=== PATIENT | female | born 1970 | race Caucasian/White ===

== ENCOUNTER 2017-09-02 20:42 | Observation (INO) | payer OTHER ==
[2017-09-02] MEDS ORDERED: ASPIRIN 325 MG TABLET PO ONE (20:49)
--- NOTE | 2017-09-02 20:56 | PDOC ---
Rapid Medical Evaluation Time Seen by Provider: 09/02/17 20:49 Medical Evaluation: Allergies Allergy/AdvReac Type Severity Reaction Status Date / Time No Known Allergies Allergy Verified 10/12/15 22:22 09/02/17 20:50 Pt with PMH of CHF, hx of coarctation repair, mitral valve insufficiency, presents to the ED for L sided chest discomfort, light headedness, and L arm numbness today. Pt states she has had discomfort for the past 5 days, however, today pt states that her chest became extremely tight and light headed. Pt states that she almost passed out. Pt states she can't catch her breath. Was evaluated at urgent care and was told to come to the ED Exam: RRR, diastolic murmur over the 2-3rd L sternal boarder II/. CTAB. AAOx3 Orders: Chest pain order set Pt to proceed to ED for further evaluation Tongue And Quarter Stitcher: Dr. Cuevas Discharge Disposition - Diagnosis Chest pain - Referrals - Patient Instructions - Post Discharge Activity
[2017-09-02 20:58] VITALS: BMI 42.0
[2017-09-02] MEDS ORDERED: ASPIRIN 325 MG TABLET ONE (21:03)
--- NOTE | 2017-09-02 21:20 | PDOC ---
History of Present Illness - General Chief Complaint: Chest Pain Stated Complaint: CHEST PAIN Time Seen by Provider: 09/02/17 20:49 - History of Present Illness Initial Comments: 09/02/17 21:19 Ms. Marinelli is a 47 yo female w/ pmh of coarctation of the aorta (repaired 1981), MV insufficiency, bicuspid aortic valve, obesity, and sleep apnea who presents for evaluation of 5 day history of AM chest discomfort increased today. She reports that every morning upon awakening from sleep she has had left sided chest pain that would resolved after a few hours. She presents as she had an episode today where her chest became very tight and she reports she became lightheaded and almost lost consciousness. She then went to urgent care and was instructed to present to ED. She is also currently slightly nauseated. The patient denies fever, chills, vomit, diarrhea and constipation. Denies dysuria, frequency, urgency and hematuria. Allergies: DA Heel Former: Dr. Cuevas Past History - Past Medical History Allergies/Adverse Reactions: Allergies Allergy/AdvReac Type Severity Reaction Status Date / Time No Known Allergies Allergy Verified 09/02/17 22:32 Home Medications: Ambulatory Orders Acetaminophen [Tylenol .Regular Strength -] 650 mg PO Q4H PRN #0 tablet Albuterol 2.5/Ipratropium 0.5 [Duoneb -] 1 neb IH QID #90 vial.neb. 10/21/15 Albuterol Sulfate Inhaler - [Ventolin HFA Inhaler -] 1 - 2 inh PO Q4H PRN #1 inhaler 10/21/15 Carvedilol [Coreg -] 3.125 mg PO BID #60 tablet 10/21/15 Cyclobenzaprine HCl [Flexeril -] 10 mg PO TID PRN #20 tablet 10/21/15 Furosemide [Lasix -] 40 mg PO DAILY #30 tablet 10/21/15 Nebulizer [Compact Compressor Nebulizer] 1 each ASDIR #1 kit 10/21/15 Ramipril [Altace] 2.5 mg PO DAILY #30 capsule 10/21/15 Cardiac Disorders: Yes (MV insuf, coartation of aorta) COPD: No CHF: Yes HTN: Yes (pulm HTN) - Surgical History Cardiac Surgery: Yes (coartation repair) Cholecystectomy: Yes Orthopedic Surgery: Yes (foot sx) - Immunization History Immunization Up to Date: Yes - Suicide/Smoking/Psychosocial Hx Smoking History: Former smoker Have you smoked in the past 12 months: No Number of Cigarettes Smoked Daily: 20 If you are a former smoker, when did you quit?: 2006 Information on smoking cessation initiated: No Hx Alcohol Use: No Drug/Substance Use Hx: No Substance Use Type: None Hx Substance Use Treatment: No Review of Systems - Review of Systems Comments:: 09/02/17 21:32 GENERAL/CONSTITUTIONAL: No fever or chills. No weakness. HEAD, EYES, EARS, NOSE AND THROAT: No change in vision. No ear pain or discharge. No sore throat. CARDIOVASCULAR: +Chest pain as described RESPIRATORY: No cough, wheezing, or hemoptysis. GASTROINTESTINAL: +Current minor nausea. No vomiting, diarrhea or constipation. GENITOURINARY: No dysuria, frequency, or change in urination. MUSCULOSKELETAL: No joint or muscle swelling or pain. No neck or back pain. SKIN: No rash NEUROLOGIC: +Light headed feeling as described. No headache, vertigo, loss of consciousness, or change in strength/sensation. ENDOCRINE: No increased thirst. No abnormal weight change HEMATOLOGIC/LYMPHATIC: No anemia, easy bleeding, or history of blood clots. ALLERGIC/IMMUNOLOGIC: No hives or skin allergy. *Physical Exam - Vital Signs Last Vital Signs Temp Pulse Resp BP Pulse Ox 98.3 F 99 H 18 144/91 100 09/02/17 20:49 09/02/17 20:49 09/02/17 20:49 09/02/17 20:49 09/02/17 20:49 - Physical Exam Comments: 09/02/17 21:33 GENERAL: Awake, alert, and fully oriented, in no acute distress HEAD: No signs of trauma, normocephalic, atraumatic EYES: PERRLA, EOMI, sclera anicteric, conjunctiva clear ENT: Auricles normal inspection, hearing grossly normal, nares patent, oropharynx clear without exudates. Moist mucosa NECK: Normal ROM, supple, no lymphadenopathy, JVD, or masses LUNGS: No distress, speaks full sentences, clear to auscultation bilaterally HEART: Regular rate and rhythm, normal S1 and S2, no murmurs, rubs or gallops, peripheral pulses normal and equal bilaterally. ABDOMEN: Soft, nontender, normoactive bowel sounds. No guarding, no rebound. No masses EXTREMITIES: Normal inspection, Normal range of motion, no edema. No clubbing or cyanosis. NEUROLOGICAL: Cranial nerves II through XII grossly intact. Normal speech, normal gait, no focal sensorimotor deficits SKIN: Warm, Dry, normal turgor, no rashes or lesions noted. ED Treatment Course - LABORATORY CBC & Chemistry Diagram: 09/02/17 22:25 09/02/17 22:25 - Medications Given in the ED: ED Medications Discontinued Medications Generic Name Dose Route Start Last Admin Trade Name Freq PRN Reason Stop Dose Admin Aspirin 325 mg 09/02/17 20:49 09/02/17 21:03 Asa - PO 09/02/17 20:50 325 mg ONCE ONE Administration Medical Decision Making - Medical Decision Making 09/03/17 01:42 Ms. Marinelli is a 47 yo female w/ pmh as described who presents for evaluation of 5 day history of chest pain. Patient currently resting comfortably, evaluation sent for cardiac workup grossly negative. EKG non-concerning, CXR negative. D- Dimer elevated as below. Patient currently pending CTA chest/abdomen for further evaluation - r/o PE/ dissection. Patient signed out to Dr. Hood for further evaluation. Laboratory Results - last 24 hr 09/02/17 09/02/17 09/02/17 22:25 22:25 22:25 WBC 8.7 RBC 4.33 Hgb 13.4 Hct 39.4 MCV 90.8 MCH 30.8 MCHC 33.9 RDW 12.9 Plt Count 246 D MPV 7.9 Absolute Neuts (auto) 5.7 Neutrophils % 65.3 Lymphocytes % 26.5 Monocytes % 6.6 Eosinophils % 0.4 D Basophils % 1.2 Nucleated RBC % 0 PT with INR 11.10 INR 0.98 D-Dimer Sodium 139 Potassium 3.8 Chloride 100 Carbon Dioxide 29 Anion Gap 10 BUN 9 Creatinine 0.8 Creat Clearance w eGFR > 60 Random Glucose 103 Calcium 9.2 Magnesium 2.0 Total Bilirubin 0.4 AST 17 ALT 29 Alkaline Phosphatase 59 Creatine Kinase 47 Troponin I < 0.02 Total Protein 7.0 Albumin 3.7 Serum , Qual 09/02/17 09/03/17 22:25 01:27 WBC RBC Hgb Hct MCV MCH MCHC RDW Plt Count MPV Absolute Neuts (auto) Neutrophils % Lymphocytes % Monocytes % Eosinophils % Basophils % Nucleated RBC % PT with INR INR D-Dimer 675 H Sodium Potassium Chloride Carbon Dioxide Anion Gap BUN Creatinine Creat Clearance w eGFR Random Glucose Calcium Magnesium Total Bilirubin AST ALT Alkaline Phosphatase Creatine Kinase Troponin I Total Protein Albumin Serum , Qual Negative *DC/Admit/Observation/Transfer Diagnosis at time of Disposition: Chest pain Qualifiers: Chest pain type: unspecified Qualified Code(s): R07.9 - Chest pain, unspecified - Discharge Dispostion Decision to Admit order: Yes - Referrals Referrals: Tati Hooks MD [Primary Care Provider] - - Patient Instructions - Post Discharge Activity
[2017-09-02 22:52] LABS: BASO % 1.2 % (0-2.0); EOS % 0.4 % (0-4.5); HEMATOCRIT 39.4 % (32.4-45.2); HEMOGLOBIN 13.4 GM/dL (10.7-15.3); LYMPH % 26.5 % (8-40); MCH 30.8 pg (25.7-33.7); MCHC 33.9 g/dl (32.0-36.0); MEAN CELL VOLUME 90.8 fl (80-96); MEAN PLT VOLUME 7.9 fl (7.5-11.1); MONO % 6.6 % (3.8-10.2); NEUT % 65.3 % (42.8-82.8); PLATELET COUNT 246 K/MM3 (134-434); RBC 4.33 M/mm3 (3.60-5.2); RDW 12.9 % (11.6-15.6); WHITE BLOOD COUNT 8.7 K/mm3 (4.0-10.0)
[2017-09-02] MEDS ORDERED: CARVEDILOL 3.125 MG TABLET (FP) PO ONE (22:53)
[2017-09-02] MEDS ORDERED: morphine CARPU-JECT 4 MG/1 ML DISP.SYRIN IVPUSH ONE (22:53)
[2017-09-02 23:04] LABS: INR 0.98 (0.82-1.09); PROTHROMBIN TIME (PATIENT) 11.1 SEC (9.7-13.0)
[2017-09-02] MEDS ORDERED: morphine SULFATE 4 MG/ML VIAL ONE (23:05)
[2017-09-02] MEDS ORDERED: CARVEDILOL 3.125 MG TABLET (FP) ONE (23:05)
[2017-09-02 23:23] LABS: ALBUMIN 3.7 g/dl (3.4-5.0); ANION GAP 10 (8-16); BLOOD UREA NITROGEN 9 mg/dL (7-18); CALCIUM 9.2 mg/dL (8.5-10.1); CHLORIDE 100 mmol/L (98-107); CO2 29 mmol/L (21-32); CREATININE 0.8 mg/dL (0.55-1.02); GLUCOSE,RANDOM 103 mg/dL (74-106); POTASSIUM 3.8 mmol/L (3.5-5.1); SGOT/AST 17 U/L (15-37); SGPT/ALT 29 U/L (12-78); SODIUM 139 mmol/L (136-145)
[2017-09-02 23:26] LABS: ALK PHOS 59 U/L (45-117); BILIRUBIN,TOTAL 0.4 mg/dL (0.2-1.0)
--- NOTE | 2017-09-03 01:22 | PDOC ---
Attending Attestation - HPI HPI: 09/03/17 01:23 Ms. Marinelli is a 47-year-old female with past medical history of aortic coarctation repair (1981), pneumonia 2012, CHF, mitral valve insufficiency, bicuspid aortic valve, CPRS and BINH, HTN presents to the emergency department via EMS with chest pain. The patient presents with pain, initially presented on Tuesday, presented below the L. breast, states its more felt in the morning accompanied with difficulty deep breathing. The patient reports additional concern of progressively worsening, constant, substernal L. sided chest pain, pressure/discomfort in character, states she felt a quick swoosh from the heart that traveled up to the head followed by the feeling of blacking out, accompanied with L. arm tingling, denies pain radiating down the arm. The patient reports following up at the urgent care [employer], where an EKG was done. The patient states healthcare providers were concerned and wanted her to follow up at the ED. The patient reports getting a cardiac echo done in May, with nonsignificant results. The patient states shes been minimal ambulation since November 2016, s/p an unsuccessful foot surgery and a knee injury. Denies fever. Denies SOB or respiratory distress. No cough or congestion. Denies similar incident in the past. (+) L. arm tingling. Nausea. Substernal L. sided chest pain. Below L. breast pain in the morning. Allergies: NKDA Social history: Former smoker. No alcohol or recreational drug use reported Surgical history: Cholecystectomy, tonsillectomy, repair of coarctation of aorta at age [age], Foot surgery for fx sesamoid 2014 Family history: Grandmother: ID around age 70. PCP: Dr. Tati Hooks. Management Retail Intern: Dr. Cuevas - Physicial Exam PE: 09/03/17 01:23 General: Well appearing, awake and alert, NAD. HEENT: NCAT, PERRL, EOMI, clear conjunctiva, anicteric, moist mucus membranes, clear oropharynx, no oral lesions.. Neck: neck supple, FROM Resp: CTAB, normal and even respirations, no respiratory distress CVS: (+) Soft holosystolic murmur, regular rate. 2+ peripheral pulses throughout , no peripheral edema Abdomen: soft, NTND, no peritoneal signs. Back: nontender, normal inspection and ROM MSK: no edema, HOLLIDAY x4, ROM intact. No clubbing or cyanosis. normal bulk and tone. Neuro: alert, oriented appropriately; no focal neurologic deficits. SILT, 5/5 distal and prox strength in all extrem. speech clear. Skin: warm and well perfused, cap refill <2 sec, normal color; no rash <Brooke Dennis - Last Filed: 09/03/17 01:23> - Resident Resident Name: Brent Tinsley - ED Attending Attestation I have performed the following: I have examined & evaluated the patient, The case was reviewed & discussed with the resident, I agree w/resident's findings & plan, Exceptions are as noted - Medical Decision Making 09/03/17 01:19 A portion of this note was documented by scribe services under my direction. I have reviewed the details of the note, within reason, and agree with the documentation with the following case summary and management plan written by me. MDM Yves 47 YOF - h/o aortic coarctation repair (1981), pneumonia 2012, CHF, mitral valve insufficiency, bicuspid aortic valve, CPRS and BINH, HTN Presenting with chest pain x 5 days, worse today. +left pleuritic chest pain, anterior substernal chest pain today a/w near syncope and feeling flushed. No prior history of similar sx. DDx chest pain: ACS, PE, dissection, PUD, esophageal spasm, GERD, gastritis, costochondritis, pneumonia, pleurisy, pericarditis/myocarditis. dehydration, electrolyte/metabolic derangements. ECG: sinus rhythm at 95 bpm normal intervals, TWI and flattening in III/AVF, similar to prior results. Otherwise no segment or interval derangements. trop negative x1, Heart score 1 but with additional cardio vascular risk factors warranting cards eval Plan: CXR, CBC, CMP, EKG, trop. D dimer, ASA 324mg x1, morphine for pain control Cannot PERC out, due to tachycardia and cardiovascular risk factors, D dimer elevated and age adjusted elevated. CTA to r/o aortic dissection and PE. Will admit for medical management, r/o ACS, tele and serial trops and cards cs. Called out to her laser specialist group, Dr. Cuevas. 09/03/17 01:21 09/03/17 01:22 09/03/17 02:00 <Taylor Harvey - Last Filed: 09/03/17 02:00> Heart Score/ECG Review - History History: Slightly suspicious - Electrocardiogram EKG: Normal - Age Age: </= 45 - Risk Factors Risk Factors Heart Score: Yes Hx Hypertension, Yes Hx Obesity Based on the list above the patient has:: 1-2 risk factors - Troponin Troponin: </= normal limit - Score Heart Score - Total: 1 - ECG Impressions Comment:: 09/03/17 01:59 sinus rhythm at 95 bpm normal intervals, TWI and flattening in III/AVF, similar to prior results <Taylor Harvey - Last Filed: 09/03/17 02:00>
[2017-09-03] MEDS ORDERED: ONDANSETRON 4 MG/2 ML VIAL IVPB ONE (03:41)
[2017-09-03] MEDS ORDERED: ONDANSETRON 4 MG/2 ML VIAL ONE (03:52)
--- NOTE | 2017-09-03 04:33 | PDOC ---
*Physical Exam - Vital Signs Last Vital Signs Temp Pulse Resp BP Pulse Ox 98.3 F 84 17 121/65 98 09/02/17 20:49 09/03/17 03:58 09/03/17 03:58 09/03/17 03:58 09/03/17 03:58 ED Treatment Course - LABORATORY CBC & Chemistry Diagram: 09/02/17 22:25 09/02/17 22:25 - ADDITIONAL ORDERS Additional order review: Laboratory Results 09/03/17 09/02/17 09/02/17 01:27 22:25 22:25 PT with INR INR D-Dimer 675 H Sodium 139 Potassium 3.8 Chloride 100 Carbon Dioxide 29 Anion Gap 10 BUN 9 Creatinine 0.8 Creat Clearance w eGFR > 60 Random Glucose 103 Calcium 9.2 Magnesium 2.0 Total Bilirubin 0.4 AST 17 ALT 29 Alkaline Phosphatase 59 Creatine Kinase 47 Troponin I < 0.02 Total Protein 7.0 Albumin 3.7 Serum , Qual Negative 09/02/17 22:25 PT with INR 11.10 INR 0.98 D-Dimer Sodium Potassium Chloride Carbon Dioxide Anion Gap BUN Creatinine Creat Clearance w eGFR Random Glucose Calcium Magnesium Total Bilirubin AST ALT Alkaline Phosphatase Creatine Kinase Troponin I Total Protein Albumin Serum , Qual 09/02/17 22:25 RBC 4.33 MCV 90.8 MCHC 33.9 RDW 12.9 MPV 7.9 Neutrophils % 65.3 Lymphocytes % 26.5 Monocytes % 6.6 Eosinophils % 0.4 D Basophils % 1.2 - Medications Given in the ED: ED Medications Discontinued Medications Generic Name Dose Route Start Last Admin Trade Name Davidq PRN Reason Stop Dose Admin Aspirin 325 mg 09/02/17 20:49 09/02/17 21:03 Asa - PO 09/02/17 20:50 325 mg ONCE ONE Administration Carvedilol 3.125 mg 09/02/17 22:53 09/02/17 23:00 Coreg - PO 09/02/17 22:54 3.125 mg ONCE ONE Administration Morphine Sulfate 4 mg 09/02/17 22:53 09/02/17 23:00 Morphine Injection - IVPUSH 09/02/17 22:54 4 mg ONCE ONE Administration Ondansetron HCl 4 mg 09/03/17 03:41 09/03/17 03:50 Zofran Injection IVPB 09/03/17 03:42 4 mg ONCE ONE Administration Medical Decision Making - Medical Decision Making 09/03/17 04:[address] Harvey and Dr. Tinsley CTA of chest reviewed. No PE. Will admit patient for DANNIELLE. Case discussed with [place] hospitalist. *DC/Admit/Observation/Transfer Diagnosis at time of Disposition: Chest pain Qualifiers: Chest pain type: unspecified Qualified Code(s): R07.9 - Chest pain, unspecified - Discharge Dispostion Condition at time of disposition: Stable Decision to Admit order: Yes - Referrals Referrals: Tati Hooks MD [Primary Care Provider] - - Patient Instructions - Post Discharge Activity
--- NOTE | 2017-09-03 05:10 | HP ---
CHIEF COMPLAINT: Chest pain PCP: Cardio: Dr. Cuevas HISTORY OF PRESENT ILLNESS: 47 y/o F presents with worsening Left sided chest tightness x5 days. Pain is located below her left breast, mid clavicle and described as an 8/10 stabbing pain that does not travel. Today this pain was accompanied by nausea, lightheadness, Left arm numbness and difficulty breathing. Since tuesday, the patient has woken with this pain and it has resolved within a few hours. Today however, the pain has changed; It is now located midsternal and feels like a heaviness that has not resolved. Patient feels she cannot catch her breath. She was evaluated at an urgent care and was instructed to visit the ED for a possible infarct. ER course was notable for: (1) CXR negative, Troponin X1 negative, D-Dimer 675 (2) CTA Chest: Possible left upper lobe small airway disease. No other acute pathology in chest or abdomen. (3) EKG: NSR, possible LA Enlargment, Vent rate 95, QTc 437 Recent Travel: PAST MEDICAL HISTORY: CHF, Coarctation repair at age 11, Mitral valve insufficiency, Bicuspid aortic valve, Obesity, Sleep apnea on Bipap, Adenomyosis PAST SURGICAL HISTORY: GB, Tonsils, Foot, Coarctation repair Social History: Smoking: former 1/2ppd smoker quit in 2006 Alcohol: denies Drugs: denies Family History: Grandmother had an DE age 70 Allergies No Known Allergies Allergy (Verified 09/02/17 22:32) HOME MEDICATIONS: Home Medications Medication Instructions Recorded Acetaminophen [Tylenol .Regular 650 mg PO Q4H PRN #0 tablet 10/21/15 Strength -] Albuterol 2.5/Ipratropium 0.5 1 neb IH QID #90 vial.neb. 10/21/15 [Duoneb -] Albuterol Sulfate Inhaler - 1 - 2 inh PO Q4H PRN #1 inhaler 10/21/15 [Ventolin HFA Inhaler -] Carvedilol [Coreg -] 3.125 mg PO BID #60 tablet 10/21/15 Cyclobenzaprine HCl [Flexeril -] 10 mg PO TID PRN #20 tablet 10/21/15 Furosemide [Lasix -] 40 mg PO DAILY #30 tablet 10/21/15 Nebulizer [Compact Compressor 1 each MC ASDIR #1 kit 10/21/15 Nebulizer] Ramipril [Altace] 2.5 mg PO DAILY #30 capsule 10/21/15 REVIEW OF SYSTEMS CONSTITUTIONAL: Absent: fever, chills, diaphoresis, generalized weakness, malaise, loss of appetite, weight change HEENT: Absent: rhinorrhea, nasal congestion, throat pain, throat swelling, difficulty swallowing, mouth swelling, ear pain, eye pain, visual changes CARDIOVASCULAR: Present: chest pain, lightheadedness Absent: syncope, palpitations, irregular heart rate, peripheral edema RESPIRATORY: Present: shortness of breath Absent: cough, dyspnea with exertion, orthopnea, wheezing, stridor, hemoptysis GASTROINTESTINAL: Present: nausea Absent: abdominal pain, abdominal distension, vomiting, diarrhea, constipation, melena, hematochezia GENITOURINARY: Absent: dysuria, frequency, urgency, hesitancy, hematuria, flank pain, genital pain MUSCULOSKELETAL: Absent: myalgia, arthralgia, joint swelling, back pain, neck pain SKIN: Absent: rash, itching, pallor HEMATOLOGIC/IMMUNOLOGIC: Absent: easy bleeding, easy bruising, lymphadenopathy, frequent infections ENDOCRINE: Absent: unexplained weight gain, unexplained weight loss, heat intolerance, cold intolerance NEUROLOGIC: Absent: headache, focal weakness or paresthesias, dizziness, unsteady gait, seizure, mental status changes, bladder or bowel incontinence PSYCHIATRIC: Absent: anxiety, depression, suicidal or homicidal ideation, hallucinations. PHYSICAL EXAMINATION Vital Signs - 24 hr 09/02/17 09/03/17 20:49 03:58 Temperature 98.3 F Pulse Rate 99 H Pulse Rate [ 84 Right Radial] Respiratory 18 17 Rate Blood Pressure 144/91 Blood Pressure 121/65 [Left Arm] O2 Sat by Pulse 100 98 Oximetry (%) GENERAL: Awake, alert, and fully oriented, in no acute distress. LUNGS: Breath sounds equal, clear to auscultation bilaterally. No wheezes, and no crackles. HEART: Regular rate and rhythm, normal S1 and S2, Systolic murmur at Left sternal border ABDOMEN: Obese, Soft, nontender, not distended, normoactive bowel sounds, no guarding, no rebound, no masses. UPPER EXTREMITIES: 2+ pulses, warm, well-perfused. LOWER EXTREMITIES: 2+ pulses, warm, well-perfused. No peripheral edema. Laboratory Results - last 24 hr 09/02/17 09/02/17 09/02/17 22:25 22:25 22:25 WBC 8.7 RBC 4.33 Hgb 13.4 Hct 39.4 MCV 90.8 MCH 30.8 MCHC 33.9 RDW 12.9 Plt Count 246 D MPV 7.9 Absolute Neuts (auto) 5.7 Neutrophils % 65.3 Lymphocytes % 26.5 Monocytes % 6.6 Eosinophils % 0.4 D Basophils % 1.2 Nucleated RBC % 0 PT with INR 11.10 INR 0.98 D-Dimer Sodium 139 Potassium 3.8 Chloride 100 Carbon Dioxide 29 Anion Gap 10 BUN 9 Creatinine 0.8 Creat Clearance w eGFR > 60 Random Glucose 103 Calcium 9.2 Magnesium 2.0 Total Bilirubin 0.4 AST 17 ALT 29 Alkaline Phosphatase 59 Creatine Kinase 47 Troponin I < 0.02 Total Protein 7.0 Albumin 3.7 Serum , Qual 09/02/17 09/03/17 22:25 01:27 WBC RBC Hgb Hct MCV MCH MCHC RDW Plt Count MPV Absolute Neuts (auto) Neutrophils % Lymphocytes % Monocytes % Eosinophils % Basophils % Nucleated RBC % PT with INR INR D-Dimer 675 H Sodium Potassium Chloride Carbon Dioxide Anion Gap BUN Creatinine Creat Clearance w eGFR Random Glucose Calcium Magnesium Total Bilirubin AST ALT Alkaline Phosphatase Creatine Kinase Troponin I Total Protein Albumin Serum , Qual Negative ASSESSMENT/PLAN: 47 y/o F presents with atypical chest pain, feels like heaviness accompanied with difficulty breathing 1. R/O ACS - EKG: NSR, repeat - Troponins < 0.02 X1, Trend - D-Dimer: 675 - CTA: No acute pathology, No evidence of PE - In ED, Given 1 dose Morphine, D/c'ed - Zofran for Nausea - Admit to Obs - Cardiology (Dr. Luevano) Consulted, will follow recommendations - Can continue home meds once reconciled with pharmacy 2. PPx - DVT: Early ambulation Visit type - Emergency Visit Emergency Visit: Yes ED Registration Date: 09/03/17 Care time: The patient presented to the Emergency Department on the above date and was hospitalized for further evaluation of their emergent condition. - New Patient This patient is new to me today: Yes Date on this admission: 09/03/17 - Critical Care Critical Care patient: No Hospitalist Screening - Colonoscopy Questionnaire Colonoscopy Questionnaire: Colonoscopy Questionnaire - Patient: 50 - 75 years old and never had a screening colonoscopy: Unknown History of colon or rectal polyps, or CA: Unknown History of IBD, Crohn's disease or UC: Unknown History of abdominal radiation therapy as a child: Unknown - Relative: 1 with colon or rectal CA, or polyps at age 60 or younger: Unknown Colon or rectal CA diagnosed at age 45 or younger: Unknown Multiple relatives with colon or rectal CA: Unknown - Outcome: Screening Result: Negative Screen
--- NOTE | 2017-09-03 06:12 | PN ---
Teaching Attending Note Name of Resident: Venu Burdick ATTENDING PHYSICIAN STATEMENT I saw and evaluated the patient. I reviewed the resident's note and discussed the case with the resident. I agree with the resident's findings and plan as documented. SUBJECTIVE: OBJECTIVE: ASSESSMENT AND PLAN: this is a 47 y/o female with hx of Bicuspid AV, coractation of aorta, admitted to the hospital for atypical chest pain patient pain is worse with breathing and moving the arm she contacted dr ulloa but they told her to come to the ER will consult cardiology admit to atypical chest pain
[2017-09-03 08:35] LABS: BASO % 0.5 % (0-2.0); EOS % 0.6 % (0-4.5); HEMATOCRIT 36.9 % (32.4-45.2); HEMOGLOBIN 12.7 GM/dL (10.7-15.3); LYMPH % 28.2 % (8-40); MCH 31.3 pg (25.7-33.7); MCHC 34.5 g/dl (32.0-36.0); MEAN CELL VOLUME 90.8 fl (80-96); MEAN PLT VOLUME 7.4 fl (7.5-11.1); MONO % 8.6 % (3.8-10.2); NEUT % 62.1 % (42.8-82.8); PLATELET COUNT 216 K/MM3 (134-434); RBC 4.06 M/mm3 (3.60-5.2); RDW 13.1 % (11.6-15.6); WHITE BLOOD COUNT 7.4 K/mm3 (4.0-10.0)
[2017-09-03 09:02] LABS: ANION GAP 8 (8-16); BLOOD UREA NITROGEN 11 mg/dL (7-18); CALCIUM 9.1 mg/dL (8.5-10.1); CHLORIDE 101 mmol/L (98-107); CO2 29 mmol/L (21-32); CREATININE 0.8 mg/dL (0.55-1.02); GLUCOSE,RANDOM 107 mg/dL (74-106); MAGNESIUM 2.2 mg/dL (1.8-2.4); PHOSPHOROUS 4.1 mg/dL (2.5-4.9); POTASSIUM 3.7 mmol/L (3.5-5.1); SODIUM 138 mmol/L (136-145)
--- NOTE | 2017-09-03 09:09 | CON.CARD ---
Consult Consult Specialty:: Cardiology Referred by:: Hospitalist Medicine Reason for Consultation:: Chest pain - History of Present Illness Chief Complaint: Chest pain History of Present Illness: Patient is a 47 year old female w PMH of coarctation of aorta repair (1981), diastolic failure with mitral valve prolapse with moderate insufficiency, pulm HTN, bicuspid aortic valve with mild-mod and OSAS on cpap, inflammed L. foot secondary to breakage of the sessamoid bone, last seen in office June 04, 2017 presents for atypical left sided reproducible chest tightness x5 days. Pain is located below her left breast, mid clavicle and described as an 8/10 stabbing pain that does not radiate, worse with palpation, reports anxiety and light- headedness, denies dyspnea, near or true syncope, palpitations, orthopnea, PND or LE edema. ER course was notable for: (1) CXR negative, Troponin X1 negative, D-Dimer 675 (2) CTA Chest: Possible left upper lobe small airway disease. No other acute pathology in chest or abdomen. (3) EKG: NSR, possible LA Enlargment, Vent rate 95, QTc 437 - History Source History Provided By: Patient Limitations to Obtaining History: No Limitations - Past Medical History Cardio/Vascular: Yes: CHF, Pulmonary Hypertension, Other (coarctation of aorta/ bicuspid aortic valve). No: AFIB Pulmonary: Yes: Pneumonia (in past 2012). No: Asthma, COPD, O2 Dependent ...LMP: 04/07/17 ...LMP Comment: Adenomyosis ...: No - Past Surgical History Past Surgical History: Yes: Cholecystectomy, Tonsillectomy - Alcohol/Substance Use Hx Alcohol Use: No History of Substance Use: reports: None - Smoking History Smoking history: Former smoker Have you smoked in the past 12 months: No Aproximately how many cigarettes per day: 20 If you are a former smoker, when did you quit?: 2006 - Social History History of Recent Travel: No Home Medications - Allergies Allergies/Adverse Reactions: Allergies Allergy/AdvReac Type Severity Reaction Status Date / Time No Known Allergies Allergy Verified 09/03/17 06:07 - Home Medications Home Medications: Ambulatory Orders Carvedilol [Coreg -] 3.125 mg PO BID #60 tablet 10/21/15 Furosemide [Lasix -] 40 mg PO DAILY #30 tablet 10/21/15 Ramipril [Altace] 2.5 mg PO DAILY #30 capsule 10/21/15 Review of Systems - Review of Systems Cardiovascular: reports: Chest Pain Vital Signs: Vital Signs Temperature 98.0 F 09/03/17 09:05 Pulse Rate 84 09/03/17 09:05 Respiratory Rate 18 09/03/17 09:05 Blood Pressure 112/70 09/03/17 09:05 O2 Sat by Pulse Oximetry (%) 100 09/03/17 09:00 Constitutional: Yes: No Distress, Calm Neck: Yes: Supple Respiratory: Yes: Regular, CTA Bilaterally, Other (Reproducible left chest wall tenderness) Gastrointestinal: Yes: Normal Bowel Sounds, Soft, Abdomen, Obese Cardiovascular: Yes: Regular Rate and Rhythm JVD: No Carotid Bruit: No Heart Sounds: Yes: S1, S2 Murmur: Yes: Systolic Murmur, Grade 1 Edema: No - Other Data Labs, Other Data: CBC, BMP 09/03/17 08:25 09/03/17 08:25 INR, PTT INR 0.98 (0.82-1.09) 09/02/17 22:25 Troponin, BNP 09/02/17 22:25 Troponin I < 0.02 Troponin, BNP 09/02/17 22:25 Troponin I < 0.02 NSR @ 95 LAE Ejection Fraction %: LVEF > or = 40 % Imaging - Results Chest X-ray: Report Reviewed (NAD) Cat Scan: Pending Problem List - Problems (1) Atypical chest pain Code(s): R07.89 - OTHER CHEST PAIN (2) Bicuspid aortic valve Code(s): Q23.1 - CONGENITAL INSUFFICIENCY OF AORTIC VALVE (3) Coarctation of aorta Code(s): Q25.1 - COARCTATION OF AORTA (4) Left ventricular dysfunction Code(s): I51.9 - HEART DISEASE, UNSPECIFIED (5) Mitral regurgitation Code(s): I34.0 - NONRHEUMATIC MITRAL (VALVE) INSUFFICIENCY Qualifiers: Cardiac valve disease etiology: nonrheumatic Qualified Code(s): I34.0 - Nonrheumatic mitral (valve) insufficiency (6) Obstructive sleep apnea of adult Code(s): G47.33 - OBSTRUCTIVE SLEEP APNEA (ADULT) (PEDIATRIC) (7) CHF (congestive heart failure) Code(s): I50.9 - HEART FAILURE, UNSPECIFIED Qualifiers: Heart failure type: diastolic Heart failure chronicity: chronic Qualified Code(s): I50.32 - Chronic diastolic (congestive) heart failure (8) Mitral valve prolapse Code(s): I34.1 - NONRHEUMATIC MITRAL (VALVE) PROLAPSE Assessment/Plan 1. Atypical reproducible chest pain syndrome suspect musculoskeletal etiology 2. Chronic LV diastolic dysfunction 2. Mitral valve disease MVP with moderate mitral valve regurgitation for medical management 3. Coarctation of the aorta post repair 4. Bicuspid aortic valve with mild , AV area of 1.2 cm2 5. OSAS on cpap 6. Fracture foot with persistent discomfort PLAN: 1. Ruling out out for AR, f/u formal chest CTA report, analgesia as needed 2. Continue Coreg 3.125 bid, Altace 2.5 qd, Lasix 40 qd 3. Review outpatient records, most recent echo in May 11. Thank you for consultative opportunity
[2017-09-03] MEDS ORDERED: NAPROXEN 250 MG TABLET (FP) PO PRN (09:38)
[2017-09-03] MEDS ORDERED: PT OWN MED DRAWER 7, Y5N ONE (09:56)
[2017-09-03] MEDS ORDERED: CARVEDILOL 3.125 MG TABLET (FP) PO SCH (10:00)
[2017-09-03] MEDS ORDERED: METHYL SALICYLATE/MENTHOL OINT 30 GM TUBE TP SCH (10:00)
[2017-09-03] MEDS ORDERED: PANTOPRAZOLE 20 MG TABLET (FP) PO SCH (10:00)
[2017-09-03] MEDS ORDERED: FUROSEMIDE 40 MG TABLET (FP) PO SCH (10:00)
[2017-09-03] MEDS ORDERED: RAMIPRIL 2.5 MG CAPSULE (FP) PO SCH (10:00)
[2017-09-03 14:16] VITALS: BP 144/89; PULSE 92; TEMP 98.5
--- NOTE | 2017-09-03 15:37 | DS ---
Physical Exam: SUBJECTIVE: Patient seen and examined. c/o positional CP that is worse on palpation. denies any trauma or moving any heavy furniture/children recently. denies SOB, fever., chills, N/V/C/D OBJECTIVE: Vital Signs Period Temp Pulse Resp BP Sys/Duran Pulse Ox Last 24 Hr 98.0 F-98.6 F 84-99 16-20 112-144/65-91 98-100 PHYSICAL EXAM GENERAL: The patient is awake, alert, and fully oriented, in no acute distress. HEAD: Normal with no signs of trauma. EYES: PERRL, extraocular movements intact, sclera anicteric, conjunctiva clear. ENT: Ears normal, nares patent, oropharynx clear without exudates, moist mucous membranes. NECK: Trachea midline, full range of motion, supple. LUNGS: Breath sounds equal, clear to auscultation bilaterally, no wheezes, no crackles, no accessory muscle use. HEART: Regular rate and rhythm, S1, S2 without murmur, rub or gallop. +chest wall tenderness ABDOMEN: Soft, nontender, nondistended, normoactive bowel sounds, no guarding, no rebound, no hepatosplenomegaly, no masses. EXTREMITIES: 2+ pulses, warm, well-perfused, no edema. NEUROLOGICAL: Cranial nerves II through XII grossly intact. Normal speech, gait not observed. PSYCH: Normal mood, normal affect. SKIN: Warm, dry, normal turgor, no rashes or lesions noted. LABS Laboratory Results - last 24 hr 09/02/17 09/02/17 09/02/17 22:25 22:25 22:25 WBC 8.7 RBC 4.33 Hgb 13.4 Hct 39.4 MCV 90.8 MCH 30.8 MCHC 33.9 RDW 12.9 Plt Count 246 D MPV 7.9 Absolute Neuts (auto) 5.7 Neutrophils % 65.3 Lymphocytes % 26.5 Monocytes % 6.6 Eosinophils % 0.4 D Basophils % 1.2 Nucleated RBC % 0 PT with INR 11.10 INR 0.98 D-Dimer Sodium 139 Potassium 3.8 Chloride 100 Carbon Dioxide 29 Anion Gap 10 BUN 9 Creatinine 0.8 Creat Clearance w eGFR > 60 Random Glucose 103 Calcium 9.2 Phosphorus Magnesium 2.0 Total Bilirubin 0.4 AST 17 ALT 29 Alkaline Phosphatase 59 Creatine Kinase 47 Troponin I < 0.02 Total Protein 7.0 Albumin 3.7 Serum , Qual 09/02/17 09/03/17 09/03/17 22:25 01:27 08:25 WBC 7.4 RBC 4.06 Hgb 12.7 Hct 36.9 MCV 90.8 MCH 31.3 MCHC 34.5 RDW 13.1 Plt Count 216 MPV 7.4 L Absolute Neuts (auto) 4.6 Neutrophils % 62.1 Lymphocytes % 28.2 Monocytes % 8.6 Eosinophils % 0.6 Basophils % 0.5 Nucleated RBC % 0 PT with INR INR D-Dimer 675 H Sodium Potassium Chloride Carbon Dioxide Anion Gap BUN Creatinine Creat Clearance w eGFR Random Glucose Calcium Phosphorus Magnesium Total Bilirubin AST ALT Alkaline Phosphatase Creatine Kinase Troponin I Total Protein Albumin Serum , Qual Negative 09/03/17 08:25 WBC RBC Hgb Hct MCV MCH MCHC RDW Plt Count MPV Absolute Neuts (auto) Neutrophils % Lymphocytes % Monocytes % Eosinophils % Basophils % Nucleated RBC % PT with INR INR D-Dimer Sodium 138 Potassium 3.7 Chloride 101 Carbon Dioxide 29 Anion Gap 8 BUN 11 Creatinine 0.8 Creat Clearance w eGFR > 60 Random Glucose 107 H Calcium 9.1 Phosphorus 4.1 Magnesium 2.2 Total Bilirubin AST ALT Alkaline Phosphatase Creatine Kinase 42 Troponin I < 0.02 Total Protein Albumin Serum , Qual HOSPITAL COURSE: Date of Admission:09/03/17 Date of Discharge: 09/03/17 Admitting diagnosis Atypical CP Pre hospital course 47 y/o F presents with worsening Left sided chest tightness x5 days. Pain is located below her left breast, mid clavicle and described as an 8/10 stabbing pain that does not travel. Today this pain was accompanied by nausea, lightheadness, Left arm numbness and difficulty breathing. Since tuesday, the patient has woken with this pain and it has resolved within a few hours. Today however, the pain has changed; It is now located midsternal and feels like a heaviness that has not resolved. Patient feels she cannot catch her breath. She was evaluated at an urgent care and was instructed to visit the ED for a possible infarct. ER course was notable for: (1) CXR negative, Troponin X1 negative, D-Dimer 675 (2) CTA Chest: Possible left upper lobe small airway disease. No other acute pathology in chest or abdomen. (3) EKG: NSR, possible LA Enlargment, Vent rate 95, QTc 437 Subsequent hospital course Tele observation to r/o ACS. cardiac ensymes neg x2. no events on monitor. seen by cardio. all imaging negative for acute disease. d/c home with instructions to use motrin as needed and f/u with cardio this week. Minutes to complete discharge: 40 Discharge Summary Reason For Visit: CHEST PAIN Current Active Problems Atypical chest pain (Acute) Chest pain (Acute) Mitral valve prolapse (Acute) Condition: Stable - Instructions Diet, Activity, Other Instructions: You were observed in the hospital because of chest pain This Is most likely muscular in nature. Take motrin as needed for the pain. You can also apply [place]-sánchez cream to the area for relief Follow up with your primary care doctor in 1 week Follow up with Dr Murphy on 09/08 as already scheduled. He may do more testing if your pain has not improved Follow a low salt diet Return to the hospital if your pain worsens. Referrals: Kermit Gray MD [Staff Physician] - Tati Hooks MD [Primary Care Provider] - - Home Medications Comprehensive Discharge Medication List: Ambulatory Orders Carvedilol [Coreg -] 3.125 mg PO BID #60 tablet 10/21/15 Furosemide [Lasix -] 40 mg PO DAILY #30 tablet 10/21/15 Ramipril [Altace] 2.5 mg PO DAILY #30 capsule 10/21/15 This patient is new to me today: Yes Date on this admission: 09/03/17 Emergency Visit: Yes ED Registration Date: 09/03/17 Care time: The patient presented to the Emergency Department on the above date and was hospitalized for further evaluation of their emergent condition. Critical Care patient: No - Discharge Referral Referred to [facility] No
--- NOTE | 2017-09-05 10:44 | EKG ---
Test Reason : Blood Pressure : / mmHG Vent. Rate : 095 BPM Atrial Rate : 095 BPM P-R Int : 182 ms QRS Dur : 102 ms QT Int : 348 ms P-R-T Axes : 022 024 019 degrees QTc Int : 437 ms NORMAL SINUS RHYTHM POSSIBLE LEFT ATRIAL ENLARGEMENT BORDERLINE ECG WHEN COMPARED WITH ECG OF 13-OCT-2015 12:27, PREMATURE VENTRICULAR COMPLEXES ARE NO LONGER PRESENT T WAVE VARIATION Confirmed by FLYNN RICO, OLLIE ([id number]) on 09/05/2017 10:43:39 AM Referred By: Confirmed By:OLLIE PRUETT MD
== END 2017-09-03 16:08 | disposition home or self-care (01) ==
LOC: JER 20:42 → JERBED 09-03 02:04 → J4W 09-03 08:06
PROVIDERS: ADMIT Internal Medicine; ATTEND Internal Medicine
PROC: 3E033NZ Introduction of Analgesics, Hypnotics, Sedatives into Peripheral Vein, Percutaneous Approach (ICD-10-PCS; principal; 2017-09-03)
PROC: 3E033GC Introduction of Other Therapeutic Substance into Peripheral Vein, Percutaneous Approach (ICD-10-PCS; 2017-09-03)
DX: R07.89 Other chest pain (principal); Q23.1 Congenital insufficiency of aortic valve; Q25.1 Coarctation of aorta; I51.9 Heart disease, unspecified; I34.0 Nonrheumatic mitral (valve) insufficiency; G47.33 Obstructive sleep apnea (adult) (pediatric); I50.9 Heart failure, unspecified; I34.1 Nonrheumatic mitral (valve) prolapse; E66.9 Obesity, unspecified; Z68.41 Body mass index [BMI] 40.0-44.9, adult; Z87.891 Personal history of nicotine dependence; Z87.74 Personal history of (corrected) congenital malformations of heart and circulatory system
CPT/HCPCS: 36415; 71046-TC-FY; 71275-TC; 74175-TC; 80048; 80053; 82550; 83735; 84100; 84484; 84703; 85025; 85379; 85610; 93005; 93010; 99285-25; G0378

== ENCOUNTER 2018-01-17 01:49 | Emergency (ER) | payer OTHER ==
[2018-01-17 02:15] VITALS: BP 147/97; PULSE 94; TEMP 99; BMI 43.5
[2018-01-17] MEDS ORDERED: ALBUTEROL SO4 2.5/IPRATROPIUM 0.5 INH SOL 3 ML VIAL.NEB. NEB ONE ×3 (02:29→02:47)
--- NOTE | 2018-01-17 03:12 | PDOC ---
History of Present Illness - General Chief Complaint: Shortness of Breath Stated Complaint: S.O.B. Time Seen by Provider: 01/17/18 01:55 - History of Present Illness Initial Comments: Irene Marinelli is a 47yo woman with a PMH of CHF, aortic coarctation (repaired) , mitral insufficiency, bicuspid aortic valve, obesity, BINH who presents with worsening SOB over the past 4 days. She reports that she cannot sleep because she feels so short of breath, and she stayed home from work yesterday because she did not feel that she wound be able to "walk and talk and breath" at the same time. Ms Marinelli does note some recent nasal congestion, but she denies any cough, fever , nausea/vomiting, or change in bowel habits. She has had CHF exacerbations in the past, but she reports that this does not feel the same. She says that she knows she is getting in a full breath, but she feels like she is always "trying to catch up" with her breathing. In addition to the breathing difficulty, Ms Marinelli reports that she recently had her dose of carvedilol and ramipril doubled. Initially, she was told to take two tablets of each medicine twice per day until the new tablets arrived at her house. However, when she received the new prescriptions she accidentally continued to take two tablets BID of each. She took double the prescribed dose (12.5mg carvedilol BID and 5mg ramipril daily) for 10-11 days before realizing the mistake. She reports being concerned that this was an overdose of the medication. Past History - Past Medical History Allergies/Adverse Reactions: Allergies Allergy/AdvReac Type Severity Reaction Status Date / Time No Known Allergies Allergy Verified 01/17/18 02:12 Home Medications: Ambulatory Orders Carvedilol [Coreg -] 3.125 mg PO BID #60 tablet 10/21/15 Furosemide [Lasix -] 40 mg PO DAILY #30 tablet 10/21/15 Ramipril [Altace] 2.5 mg PO DAILY #30 capsule 10/21/15 Baclofen 1 - 2 tab PO PRN 01/17/18 Cardiac Disorders: Yes (MV insuf, coartation of aorta) COPD: No CHF: Yes HTN: Yes (pulm HTN) - Surgical History Cardiac Surgery: Yes (coartation repair) Cholecystectomy: Yes Orthopedic Surgery: Yes (foot sx) - Immunization History Immunization Up to Date: Yes - Suicide/Smoking/Psychosocial Hx Smoking History: Never smoked Have you smoked in the past 12 months: No Number of Cigarettes Smoked Daily: 20 If you are a former smoker, when did you quit?: 2006 Information on smoking cessation initiated: No Hx Alcohol Use: No Drug/Substance Use Hx: No Substance Use Type: None Hx Substance Use Treatment: No Review of Systems - Review of Systems Comments:: General: No fevers, no chills, no weight or appetite change, no malaise HEENT: No changes in vision, no changes in hearing, no congestion, no sore throat CV: No chest pain, no palpitations, no LE edema. +CARVAJAL, +orthopnea Pulm: +SOB, no cough, no wheezing GI: No nausea or vomiting, no change in bowel habits, no melena : No dysuria. +Urgency, +frequency Musc: No back pain, no joint swelling, no recent injury. +Neck pain, radiates down L arm Skin: No rash, no lesions, no erythema Endo: No excessive thirst, no heat/cold intolerance Heme: No unusual bruising or bleeding, no swollen glands Neuro: No syncope, no numbness/tingling, no focal weakness Vasc: No claudication Psych: No recent change in mood, no SI or HI *Physical Exam - Vital Signs Last Vital Signs Temp Pulse Resp BP Pulse Ox 99.0 F 94 H 20 147/97 100 01/17/18 02:12 01/17/18 02:12 01/17/18 02:12 01/17/18 02:12 01/17/18 02:12 - Physical Exam Comments: General: Comfortable, no acute distress HEENT: PERRL, EOMI, MMM, voice normal, normal neck ROM, no LAD Cards: RRR, no murmur appreciated Pulm: Comfortable on room air, clear to auscultation bilaterally Abd: Soft, nontender, nondistended Ext: Atraumatic. Trace LE edema. ROM intact. Strength 5/5 and equal bilaterally Vasc: Extremities WWP. Skin: Normal color, no rashes or lesions Neuro: A&Ox3, CN grossly intact, normal speech, motor/sensory grossly intact and symmetric Psych: Mood appropriate to situation Moderate Sedation - Procedure Monitoring Vital Signs: Procedure Monitoring Vital Signs Temperature 99.0 F 01/17/18 02:12 Pulse Rate 94 H 01/17/18 02:12 Respiratory Rate 20 01/17/18 02:12 Blood Pressure 147/97 01/17/18 02:12 O2 Sat by Pulse Oximetry (%) 100 01/17/18 02:12 ED Treatment Course - LABORATORY CBC & Chemistry Diagram: 01/17/18 02:00 01/17/18 02:00 - RADIOLOGY Radiology Studies Ordered: Category Date Time Status CHEST PA & LAT [RAD] Stat Radiology 01/17/18 02:27 Ordered - Medications Given in the ED: ED Medications Discontinued Medications Generic Name Dose Route Start Last Admin Trade Name Freq PRN Reason Stop Dose Admin Albuterol/Ipratropium 1 amp 01/17/18 02:29 01/17/18 03:03 Duoneb - NEB 01/17/18 02:30 1 amp ONCE ONE Administration Medical Decision Making - Medical Decision Making 01/17/18 03:15 Irene Marinelli is a 47yo woman with a PMH of CHF, aortic coarctation (repaired) , mitral insufficiencey, bicuspid aortic valve, obesety, BINH who presents with worsening SOB over the past 4 days. - Lungs clear on exam, no wheezing or crackles, no cough, no s/s of fluid overload - Reports urinary frequency and nasal congestion. Ddx viral URI, influenza, UTI. SOB could be due to reactive airway secondary to viral infection - Had been accidentally taking 12.5g carvedilol BID rather than 6.25 due to recent prescription change; pt was very worried that she had caused herself harm by taking too much medication. SOB could be due to anxiety if remainder of workup is negative. - CBC, CMP, mag, phos, trop, EKG, CXR, UA, UCx, flu swab sent for evaluation - Duoneb for SOB 01/17/18 04:49 - Labs reviewed. Unremarkable. No leukocytosis, BNP 105, trop negative, UA negative - CXR w/o focal infiltrations or obvious fluid overload - Flu pending - No improvement with duoneb - EKG w/ multiple PVCs but otherwise no concerning abnormalities - Page to med/surg for tele obs admission for continued shortness of breath. 01/17/18 05:06 - Spoke to med/surg team. Given negative workup, recommending obtaining an echo and contacting her tobacco buyer. May be able to be seen as an outpatient. - Will order echo, to be completed in the [employer]. - Giving Afrin for nasal congestion Seen and discussed with Dr Yu. Jessi Dang *DC/Admit/Observation/Transfer Diagnosis at time of Disposition: Dyspnea - Discharge Dispostion Disposition: HOME Condition at time of disposition: Stable Decision to Admit order: No - Referrals Referrals: Tati Hooks MD [Primary Care Provider] - Kermit Gray MD [Staff Physician] - - Patient Instructions Printed Discharge Instructions: DI for Viral Upper Respiratory Infection -- Adult Additional Instructions: Discharge Instructions: You were seen in the emergency department for shortness of breath. Your labs and tests were all normal. Your congestion and symptoms may be due to a viral respiratory infection. Home Care: - You may continue to use the Afrin spray twice daily for up to 3 days maximum. Do not continue to use it more than 3 days. - You may use the Sudafed that you bought at the store, but you may want to check with your tobacco buyer first. This medication can raise your blood pressure. - Some of your symptoms are probably due to nasal and sinus inflammation. You can use 600-800mg ibuprofen every 6-8 hours as needed. If your symptoms worsen at night, you might be able to take this once per day before bed if you are concerned about over-using medication. - Placing a humidifier by your bed may help with your congestion. Follow Up: - You should follow up with your tobacco buyer as soon as possible. You had an echocardiogram planned in the emergency department, and you may need to get this soon if your shortness of breath does not improve. - Follow up with your primary doctor if your nasal congestion does not improve within a week or you develop a fever to 101F or higher. - Seek medical care if your shortness of breath does not improve or if you have additional symptom such as chest pain or lightheadedness. - Post Discharge Activity
[2018-01-17 03:14] LABS: BASO % 0.3 % (0-2.0); EOS % 0.2 % (0-4.5); HEMATOCRIT 36.8 % (32.4-45.2); HEMOGLOBIN 12.9 GM/dL (10.7-15.3); LYMPH % 20.3 % (8-40); MCH 31.7 pg (25.7-33.7); MEAN CELL VOLUME 90.6 fl (80-96); MONO % 8.5 % (3.8-10.2); NEUT % 70.7 % (42.8-82.8); PLATELET COUNT 268 K/MM3 (134-434); RBC 4.06 M/mm3 (3.60-5.2); RDW 13.7 % (11.6-15.6); WHITE BLOOD COUNT 9.7 K/mm3 (4.0-10.0)
[2018-01-17 03:20] LABS: URINE APPEARANCE CLEAR; URINE BILIRUBIN NEGATIVE (<2.0 mg/dL); URINE COLOR STRAW; URINE GLUCOSE (UA) NEGATIVE (NEGATIVE); URINE KETONE NEGATIVE (NEGATIVE); URINE LEUK ESTERASE NEGATIVE (NEGATIVE); URINE NITRITE NEGATIVE (NEGATIVE); URINE PROTEIN NEGATIVE (NEGATIVE); URINE UROBILINOGEN NEGATIVE mg/dL (0.2-1.0)
--- NOTE | 2018-01-17 03:21 | PDOC ---
Attending Attestation - Resident Resident Name: Jessi Dang - ED Attending Attestation I have performed the following: I have examined & evaluated the patient, The case was reviewed & discussed with the resident, I agree w/resident's findings & plan - HPI HPI: 01/17/18 04:19 Yves 47 year old female w PMH of coarctation of aorta repair (1981), diastolic failure with mitral valve prolapse with moderate insufficiency, pulm HTN, bicuspid aortic valve with mild-mod and OSAS on cpap, Presenting with nasal congestion, cough and malaise, dyspnea and orthopnea x 5 days. Has had preceding intermittent periods of URI sx, got better and now worse x 5 days. Feels she cannot take a deep full breath and nonproductive cough has tried OTC sudafed w/o effect. +also urinary frequency, going multiple times a day; no dysuria or hematuria. - Physicial Exam PE: 01/17/18 04:18 NAD, +coughing, taking deep full breaths, PERRL, EOMI, MMM, nl conjunctiva, anicteric; neck supple. lungs clear, RRR, abdomen soft nontender. HOLLIDAY x4, no focal neuro deficits. No peripheral edema. normal color for ethnicity, WWP. no calf tenderness. - Medical Decision Making 01/17/18 04:23 See HPI for details DDx SOB: ACS, PE, CHF, pulmonary edema, pleurisy, pneumonia, influenza, viral syndrome. effusion. anemia, electrolyte/metabolic derangements. BINH. Considered but clinically doubt based on HPI and PE: PE, never had PE previously , always had +Dimer in past, but no leg swelling or cp, syncope or major risk factor to suggest PE/clot burden. Vital signs reviewed, wnl. Normal respirations and SpO2. Prior notes reviewed, including admissions, discharges and consultations. laboratory results and imaging reviewed, basic labs and lytes wnl UA_neg for infection CXR_unchanged, no acute pathology, edema or effusion/infiltrate.. Cardiac panel_ neg trop, neg bnp so unlikely cardiomyopathy or fluid overload EKG normal sinus rhythm, no interval abnormalities, narrow QRS, ST and T wave segments and morphology normal. Nonspecific T wave abnormalities, +intermittent PVCs ED course: observed in the ED x 4 hours. given duonebs w/o effect, speaking full sentences, but unable to lie down. instructed continued supportive care and inpatient cards cs with Dr. Rasmussen primary medical doctor. Most likely precipitating exacerbation includes viral illness/syndrome and congestion rx afrin sprays for nasal congestion, no systemic stimulants given htn/cardiac risk factors. doubt emergent pathology, with neg workup and clinical appearance, no respiratory distress. shared decision making at bedside, pt elects for discharge and outpatient eval by her primaries, which is appropriate at this time. close return precautions discussed. Dispo: Discharge with close f/u Dr. Rasmussen, primary medical doctor.. Discussed results and management plan with pt and family member at bedside, agree with impression and plan 01/17/18 06:36 01/17/18 06:38
[2018-01-17 03:23] LABS: EPI CELLS RARE /HPF (FEW); URINE BACTERIA RARE /hpf (NONE SEEN)
[2018-01-17 03:37] LABS: ALBUMIN 3.2 g/dl (3.4-5.0); ALK PHOS 89 U/L (45-117); ANION GAP 7 MMOL/L (8-16); BILIRUBIN,TOTAL 0.3 mg/dL (0.2-1); BLOOD UREA NITROGEN 19 mg/dL (7-18); CALCIUM 8.4 mg/dL (8.5-10.1); CHLORIDE 102 mmol/L (98-107); CO2 27 mmol/L (21-32); CREATININE 0.8 mg/dL (0.55-1.3); GLUCOSE,RANDOM 175 mg/dL (74-106); MAGNESIUM 2.1 mg/dL (1.8-2.4); N-TERMINAL BNP 104.9 pg/ml (5-125); PHOSPHOROUS 3.8 mg/dL (2.5-4.9); POTASSIUM 4.4 mmol/L (3.5-5.1); SGOT/AST 9 U/L (15-37); SGPT/ALT 26 U/L (13-61); SODIUM 136 mmol/L (136-145); TOT PROT 6.3 g/dl (6.4-8.2)
[2018-01-17] MEDS ORDERED: OXYMETAZOLINE 0.05% NASAL SOLUTION 15 ML BOTTLE NS PRN (05:14)
[2018-01-17] MEDS ORDERED: IBUPROFEN 400 MG TABLET (FP) PO ONE ×2 (06:16→06:18)
--- NOTE | 2018-01-17 12:57 | EKG ---
Test Reason : Blood Pressure : / mmHG Vent. Rate : 087 BPM Atrial Rate : 087 BPM P-R Int : 180 ms QRS Dur : 094 ms QT Int : 386 ms P-R-T Axes : 013 017 021 degrees QTc Int : 464 ms SINUS RHYTHM WITH FREQUENT PREMATURE VENTRICULAR COMPLEXES POSSIBLE LEFT ATRIAL ENLARGEMENT BORDERLINE ECG WHEN COMPARED WITH ECG OF 02-SEP-2017 20:50, PREMATURE VENTRICULAR COMPLEXES ARE NOW PRESENT T WAVE AMPLITUDE HAS INCREASED IN ANTERIOR LEADS Confirmed by Denis Mejia ([id number]) on 01/17/2018 12:56:47 PM Referred By: Confirmed By:Denis Mejia
== END 2018-01-17 06:43 | disposition home or self-care (01) ==
LOC: JER 01:49
PROC: 3E0F7GC Introduction of Other Therapeutic Substance into Respiratory Tract, Via Natural or Artificial Opening (ICD-10-PCS; principal; 2018-01-17)
DX: R06.00 Dyspnea, unspecified (principal); I50.9 Heart failure, unspecified; E66.9 Obesity, unspecified; Z68.41 Body mass index [BMI] 40.0-44.9, adult; I34.0 Nonrheumatic mitral (valve) insufficiency; G47.33 Obstructive sleep apnea (adult) (pediatric)
CPT/HCPCS: 36415; 71046-TC-FY; 80053; 81003; 81015; 82550; 83735; 83880; 84100; 84484; 84703; 85025; 87086; 87186; 87804; 93005; 93010; 99284-25

== ENCOUNTER 2021-12-24 13:46 | Emergency (ER) | payer OTHER ==
[2021-12-24 14:16] VITALS: BMI 45.7
[2021-12-24] MEDS ORDERED: ACETAMINOPHEN 1000 MG/100 ML BAG IVPB ONE (19:54)
[2021-12-24] MEDS ORDERED: ACETAMINOPHEN INJECTION 100 ML IVPB ONE (20:26)
[2021-12-24] MEDS ORDERED: ALBUTEROL SO4 2.5/IPRATROPIUM 0.5 INH SOL 3 ML VIAL.NEB. NEB ONE ×2 (20:37→20:41)
[2021-12-24 21:05] LABS: BASO % 1.4 % (0-2.0); EOS % 1.1 % (0-4.5); HEMATOCRIT 39.8 % (32.4-45.2); HEMOGLOBIN 13.3 GM/dL (10.7-15.3); MCHC 33.3 g/dl (32.0-36.0); MEAN CELL VOLUME 84.2 fl (80-96); MEAN PLT VOLUME 7.9 fl (7.5-11.1); MONO % 7.2 % (3.8-10.2); NEUT % 53.3 % (42.8-82.8); PLATELET COUNT 250 10^3/uL (134-434); RBC 4.73 M/mm3 (3.60-5.2); RDW 12.7 % (11.6-15.6); WHITE BLOOD COUNT 6.2 K/mm3 (4.0-10.0)
[2021-12-24 21:12] LABS: INR 0.9 (0.83-1.09); PROTHROMBIN TIME (PATIENT) 10.3 SEC (9.7-13.0)
[2021-12-24 21:15] LABS: ACTIVATED PTT 29.1 SECONDS (25.2-36.5)
[2021-12-24 21:43] LABS: CALCIUM 9.1 mg/dL (8.5-10.1)
[2021-12-24 21:44] LABS: ALBUMIN 4.1 g/dl (3.4-5.0); BLOOD UREA NITROGEN 10.3 mg/dL (7-18)
[2021-12-24 21:47] LABS: CREATININE 0.9 mg/dL (0.55-1.3)
[2021-12-24 21:48] LABS: BILIRUBIN,TOTAL 0.6 mg/dL (0.2-1); TOT PROT 7.5 g/dl (6.4-8.2)
[2021-12-24 21:52] LABS: N-TERMINAL BNP 285.6 pg/ml (5-125)
[2021-12-24 21:59] LABS: URINE APPEARANCE CLEAR; URINE BILIRUBIN NEGATIVE (NEGATIVE); URINE COLOR YELLOW; URINE GLUCOSE (UA) 3+ (NEGATIVE); URINE KETONE NEGATIVE (NEGATIVE); URINE LEUK ESTERASE NEGATIVE (NEGATIVE); URINE NITRITE NEGATIVE (NEGATIVE); URINE PROTEIN NEGATIVE (NEGATIVE); URINE UROBILINOGEN 0.2 mg/dL (0.2-1.0)
[2021-12-24 22:01] LABS: HCG,QUALITATIVE URINE Negative
[2021-12-25] MEDS ORDERED: KETOROLAC TROMETHAMINE 15 MG/ML VIAL IVPUSH ONE (00:08)
[2021-12-25] MEDS ORDERED: KETOROLAC TROMETHAMINE 15 MG/ML VIAL ONE (00:34)
[2021-12-25 01:18] VITALS: BP 134/77; PULSE 85; RESP 16; TEMP 98.7
== END 2021-12-25 01:19 | disposition home or self-care (01) ==
LOC: JER 13:46
PROC: 3E033GC Introduction of Other Therapeutic Substance into Peripheral Vein, Percutaneous Approach (ICD-10-PCS; principal; 2021-12-24)
PROC: 3E0F7GC Introduction of Other Therapeutic Substance into Respiratory Tract, Via Natural or Artificial Opening (ICD-10-PCS; 2021-12-24)
DX: R10.32 Left lower quadrant pain (principal)
CPT/HCPCS: 0241U-QW; 36415; 71045-TC-FY; 74177-TC; 80053; 81003; 83880; 84484; 84703; 85025; 85610; 85730; 86850; 86900; 86901; 87086; 93005; 93010; 99285-25

== ENCOUNTER → 2023-02-04 | Day surgery (SDC) | payer OTHER | END | disposition home or self-care (01) | LOC: JRADIR 10:22 | PROVIDERS: ATTEND Otolaryngology | PROC: 0C9 Mouth and Throat, Drainage (ICD-10-PCS; principal; 2023-02-04) | DX: R22.0 Localized swelling, mass and lump, head (principal) | CPT/HCPCS: 42400; 76942-TC; 88305-TC; 88341-TC; 88342-TC ==

== ENCOUNTER 2023-09-13 10:45 | Inpatient (IN) | payer OTHER ==
[2023-09-13] MEDS ORDERED: FUROSEMIDE 40 MG/4 ML INJECTABLE VIAL ONE (12:06)
[2023-09-13] MEDS: FUROSEMIDE 40 MG/4 ML INJECTABLE VIAL IVPUSH ONE (12:10)
[2023-09-13 12:13] LABS: BASO % 0.8 % (0-2.0); EOS % 1.3 % (0-4.5); HEMOGLOBIN 12.6 GM/dL (10.7-15.3); LYMPH % 23.6 % (8-40); MCHC 33.1 g/dl (32.0-36.0); MEAN CELL VOLUME 84.7 fl (80-96); MEAN PLT VOLUME 7.7 fl (7.5-11.1); MONO % 7.9 % (3.8-10.2); NEUT % 66.4 % (42.8-82.8); PLATELET COUNT 252 10^3/uL (134-434); RBC 4.49 M/mm3 (3.60-5.2); RDW 13.3 % (11.6-15.6); WHITE BLOOD COUNT 6.9 K/mm3 (4.0-10.0)
[2023-09-13 12:17] LABS: INR 0.84 (0.83-1.09); PROTHROMBIN TIME (PATIENT) 9.5 SEC (9.7-13.0)
[2023-09-13 12:20] LABS: ACTIVATED PTT 30.8 SECONDS (25.2-36.5)
[2023-09-13 12:35] LABS: POTASSIUM 4.4 mmol/L (3.5-5.1)
[2023-09-13 12:37] LABS: CALCIUM 9.3 mg/dL (8.5-10.1)
[2023-09-13 12:38] LABS: ALBUMIN 3.8 g/dl (3.4-5.0); BLOOD UREA NITROGEN 11.5 mg/dL (7-18)
[2023-09-13 12:41] LABS: CREATININE 0.9 mg/dL (0.55-1.3)
[2023-09-13 12:43] LABS: BILIRUBIN,TOTAL 0.5 mg/dL (0.2-1)
[2023-09-13 12:46] LABS: N-TERMINAL BNP 87.5 pg/ml (5-125)
[2023-09-13] MEDS: INSULIN ASPART SLIDING SCALE (NOVOLOG) 1 VIAL SQ SCH (17:36)
[2023-09-13] MEDS: REMDESIVIR 200 MG in SODIUM CHLORIDE 250 ML IVPB ONE (17:37)
[2023-09-13] MEDS: ACETAMINOPHEN 325 MG TABLET (FP) PO ONE (18:58)
[2023-09-13] MEDS: ATORVASTATIN CA 10 MG TABLET (FP) PO SCH (21:17)
[2023-09-13] MEDS: BACLOFEN 10 MG TABLET (FP) PO SCH (21:18)
[2023-09-13] MEDS: GABAPENTIN 300 MG CAPSULE PO SCH (21:18)
[2023-09-13] MEDS: CARVEDILOL 6.25 MG TABLET (FP) PO SCH (21:18)
[2023-09-13] MEDS: HEPARIN NA (PORCINE) 5,000 UNITS/ML 1ML VIAL SQ SCH (21:19)
[2023-09-14 09:04] LABS: EOS % 0.6 % (0-4.5); HEMATOCRIT 37.6 % (32.4-45.2); HEMOGLOBIN 12.6 GM/dL (10.7-15.3); LYMPH % 16.1 % (8-40); MCH 28.2 pg (25.7-33.7); MCHC 33.5 g/dl (32.0-36.0); MEAN CELL VOLUME 84.3 fl (80-96); MEAN PLT VOLUME 7.5 fl (7.5-11.1); MONO % 11.1 % (3.8-10.2); NEUT % 71.2 % (42.8-82.8); PLATELET COUNT 223 10^3/uL (134-434); RBC 4.46 M/mm3 (3.60-5.2); RDW 13.2 % (11.6-15.6); WHITE BLOOD COUNT 6.1 K/mm3 (4.0-10.0)
[2023-09-14 09:24] LABS: POTASSIUM 4.3 mmol/L (3.5-5.1)
[2023-09-14 09:30] LABS: CALCIUM 9.1 mg/dL (8.5-10.1)
[2023-09-14 09:31] LABS: BLOOD UREA NITROGEN 14.1 mg/dL (7-18)
[2023-09-14 09:34] LABS: CREATININE 0.8 mg/dL (0.55-1.3)
[2023-09-14] MEDS: SPIRONOLACTONE 25 MG TABLET PO SCH (10:16)
[2023-09-14] MEDS: FUROSEMIDE 40 MG TABLET (FP) PO SCH (10:16)
[2023-09-14] MEDS: REMDESIVIR 100 MG in SODIUM CHLORIDE 270 ML IVPB SCH (10:19)
[2023-09-14] MEDS: ACETAMINOPHEN 325 MG TABLET (FP) PO PRN (11:14)
[2023-09-14] MEDS: DEXAMETHASONE SOD PHOSPHATE 10 MG/1 ML VIAL IVPUSH SCH (12:12)
[2023-09-14] MEDS ORDERED: DEXAMETHASONE SOD PHOSPHATE 10 MG/1 ML VIAL IVPUSH ONE (14:19)
[2023-09-14] MEDS ORDERED: ALBUTEROL SO4 HFA INHALER IH PRN (16:15)
[2023-09-15 09:45] LABS: HEMATOCRIT 38.5 % (32.4-45.2); HEMOGLOBIN 12.9 GM/dL (10.7-15.3); MCH 28.6 pg (25.7-33.7); MCHC 33.5 g/dl (32.0-36.0); MEAN CELL VOLUME 85.2 fl (80-96); MEAN PLT VOLUME 8.1 fl (7.5-11.1); PLATELET COUNT 251 10^3/uL (134-434); RBC 4.52 M/mm3 (3.60-5.2); RDW 12.9 % (11.6-15.6); WHITE BLOOD COUNT 5.6 K/mm3 (4.0-10.0)
[2023-09-15 10:40] LABS: POTASSIUM 4.2 mmol/L (3.5-5.1)
[2023-09-15 10:51] LABS: BILIRUBIN,TOTAL 0.4 mg/dL (0.2-1); CALCIUM 9.5 mg/dL (8.5-10.1)
[2023-09-15 10:52] LABS: BLOOD UREA NITROGEN 19.2 mg/dL (7-18); MAGNESIUM 2.1 mg/dL (1.8-2.4); TOT PROT 7.7 g/dl (6.4-8.2)
[2023-09-15 10:54] LABS: CREATININE 0.9 mg/dL (0.55-1.3)
[2023-09-15 10:55] LABS: PHOSPHOROUS 3.8 mg/dL (2.5-4.9)
[2023-09-15 12:14] VITALS: BMI 44.6
[2023-09-15] MEDS: IBUPROFEN 400 MG TABLET (FP) PO ONE (21:52)
[2023-09-16] MEDS: MAG HYDROX/AL HYDROX/SIMETH 30 ML UNIT-DOSE CUP PO ONE (00:48)
[2023-09-16 05:39] VITALS: RESP 20
[2023-09-16 10:18] LABS: HEMATOCRIT 37.4 % (32.4-45.2); HEMOGLOBIN 12.5 GM/dL (10.7-15.3); MCH 28.5 pg (25.7-33.7); MCHC 33.5 g/dl (32.0-36.0); MEAN PLT VOLUME 8.2 fl (7.5-11.1); PLATELET COUNT 277 10^3/uL (134-434); RDW 12.8 % (11.6-15.6)
[2023-09-16 10:25] LABS: ALBUMIN 3.8 g/dl (3.4-5.0); BLOOD UREA NITROGEN 20.1 mg/dL (7-18); CALCIUM 9.4 mg/dL (8.5-10.1); MAGNESIUM 2.2 mg/dL (1.8-2.4)
[2023-09-16 10:28] LABS: CREATININE 0.9 mg/dL (0.55-1.3); PHOSPHOROUS 3.4 mg/dL (2.5-4.9)
[2023-09-16 10:30] LABS: BILIRUBIN,TOTAL 0.4 mg/dL (0.2-1); TOT PROT 6.8 g/dl (6.4-8.2)
[2023-09-16] MEDS: IBUPROFEN 400 MG TABLET (FP) PO PRN (13:23)
[2023-09-16] MEDS: KETOROLAC TROMETHAMINE 30 MG/1 ML VIAL IVPUSH ONE (14:48)
[2023-09-17 08:52] LABS: POTASSIUM 4.3 mmol/L (3.5-5.1)
[2023-09-17 08:56] LABS: ALBUMIN 3.9 g/dl (3.4-5.0); BLOOD UREA NITROGEN 23.3 mg/dL (7-18); CALCIUM 9.5 mg/dL (8.5-10.1)
[2023-09-17 08:58] LABS: HEMATOCRIT 42.5 % (32.4-45.2); HEMOGLOBIN 14.4 GM/dL (10.7-15.3); MCH 28.5 pg (25.7-33.7); MCHC 33.8 g/dl (32.0-36.0); MEAN CELL VOLUME 84.3 fl (80-96); MEAN PLT VOLUME 8.1 fl (7.5-11.1); PLATELET COUNT 277 10^3/uL (134-434); RBC 5.04 M/mm3 (3.60-5.2); RDW 13.1 % (11.6-15.6); WHITE BLOOD COUNT 8.4 K/mm3 (4.0-10.0)
[2023-09-17 09:02] LABS: BILIRUBIN,TOTAL 0.5 mg/dL (0.2-1); TOT PROT 7.7 g/dl (6.4-8.2)
[2023-09-17] MEDS: DEXAMETHASONE 4 MG TABLET (FP) PO SCH (09:15)
[2023-09-17] MEDS: FUROSEMIDE 40 MG TABLET (FP) PO SCH (09:16)
[2023-09-17 13:20] VITALS: BP 109/74; PULSE 86; TEMP 98.9
== END 2023-09-17 13:18 | disposition home or self-care (01) | DRG 177 ==
LOC: JER 10:45 → JERBED 14:42 → J6S 16:23
PROVIDERS: ADMIT Internal Medicine; ATTEND Internal Medicine
PROC: XW033E5 Introduction of Remdesivir Anti-infective into Peripheral Vein, Percutaneous Approach, New Technology Group 5 (ICD-10-PCS; principal; 2023-09-13)
DX: U07.1 COVID-19 (principal); J96.01 Acute respiratory failure with hypoxia; I50.32 Chronic diastolic (congestive) heart failure; Z68.41 Body mass index [BMI] 40.0-44.9, adult; G47.33 Obstructive sleep apnea (adult) (pediatric); E66.01 Morbid (severe) obesity due to excess calories; Z79.84 Long term (current) use of oral hypoglycemic drugs
CPT/HCPCS: 0241U-QW; 36415; 71045-TC-FY; 80048; 80053; 82962; 83036; 83735; 83880; 84100; 84484; 84703; 85025; 85027; 85610; 85651; 85730; 86140; 93005; 93010; 94010; 99285-25; J0248; J0475; J1100; J1644

== ENCOUNTER 2023-09-20 21:45 | Emergency (ER) | payer OTHER ==
[2023-09-20 21:57] VITALS: BP 110/71; PULSE 91; RESP 20; TEMP 98.8; BMI 43.9
[2023-09-20] MEDS ORDERED: diphenhydrAMINE HCL 25 MG CAPSULE (FP) PO ONE (23:34)
[2023-09-20] MEDS ORDERED: predniSONE 20 MG TABLET (UD) ONE (23:34)
[2023-09-20] MEDS: diphenhydrAMINE HCL 25 MG CAPSULE (FP) PO ONE (23:36)
[2023-09-20] MEDS: predniSONE 20 MG TABLET (UD) PO ONE (23:36)
== END 2023-09-21 00:45 | disposition home or self-care (01) ==
LOC: JER 21:45 → JERFT 21:45 → JER 09-21 00:45
DX: R21 Rash and other nonspecific skin eruption (principal); L29.9 Pruritus, unspecified
CPT/HCPCS: 99283-25